=== PATIENT | female | born 1990 | race Caucasian/White ===

== ENCOUNTER 2024-10-31 10:38 | Outpatient (CLI) | payer OTHER | END 2024-10-31 12:19 | disposition home or self-care (01) | LOC: NST 10:38 | PROVIDERS: ATTEND Obstetrics & Gynecology | DX: Z3A.37 37 weeks gestation of pregnancy (principal) ==

== ENCOUNTER 2024-11-06 14:45 | Inpatient (IN) | payer OTHER ==
[~2024-11-06] VITALS: Ht 160 cm; Wt 2.7 kg
[2024-11-16 03:05] VITALS: BP 115/76
[2024-11-16] MEDS ORDERED: RINGERS SOLUTION,LACTATED 1,000 ML IV SCH (04:00)
[2024-11-16] MEDS ORDERED: MORPHINE SULFATE 4 MG/ML CARTRIDGE IV PRN ×2 (04:00→16:00)
[2024-11-16] MEDS ORDERED: PRENATAL TABLE1 EAC4 PO (04:09)
[2024-11-16 05:06] LABS: HEMATOCRIT 31.3 % (36.0-45.00); HEMOGLOBIN 11.2 g/dL (12.0-15.00); INR < 0.93; MEAN CELL VOLUME 88.4 fL (80.00-100.00); MEAN CORPUSCULAR HEMOGLOBIN 31.6 pg (27.00-32.0); MEAN CORPUSCULAR HGB CONC 35.7 g/dl (32.0-36.0); PARTIAL THROMBOPLASTIN TIME 24.7 SECONDS (22.0-34.0); PLATELET COUNT 177 K/uL (150-450); PROTHROMBIN TIME 10.1 SECONDS (9.0-11.5); RED BLOOD COUNT 3.54 M/uL (4.00-6.00)
[2024-11-16 07:32] VITALS: BP 100/66
[2024-11-16 11:11] VITALS: BP 119/77
[2024-11-16] MEDS ORDERED: CEFAZOLIN SODIUM 1,000 MG VIAL IV SCH (13:30)
[2024-11-16] MEDS ORDERED: CITRIC ACID/SODIUM CITRATE 30 ML BLIST.PACK PO SCH (13:30)
[2024-11-16] MEDS ORDERED: OXYTOCIN 1,000 ML IV SCH (16:00)
[2024-11-16] MEDS ORDERED: MORPHINE SULFATE 4 MG/ML VIAL IV ONE ×2 (17:05→17:35)
[2024-11-16] MEDS ORDERED: KETOROLAC TROMETHAMINE 60 MG VIAL IM ONE (19:16)
[2024-11-16 19:50] VITALS: BP 110/75
[2024-11-16] MEDS ORDERED: KETOROLAC TROMETHAMINE 10 MG TABLET PO PRN (20:00)
[2024-11-17] VITALS: BP 135/81
[2024-11-17 08:11] VITALS: BP 107/70
[2024-11-17] MEDS ORDERED: IBUprofen 400 MG TABLET PO SCH ×2 (09:00→17:00)
[2024-11-17 10:23] LABS: HEMATOCRIT 27.9 % (36.0-45.00); HEMOGLOBIN 9.7 g/dL (12.0-15.00); MEAN CELL VOLUME 90.2 fL (80.00-100.00); MEAN CORPUSCULAR HEMOGLOBIN 31.5 pg (27.00-32.0); MEAN CORPUSCULAR HGB CONC 34.9 g/dl (32.0-36.0); PLATELET COUNT 134 K/uL (150-450); RED CELL DISTRIBUTION WIDTH 14.1 % (11.5-14.5)
[2024-11-17 12:30] VITALS: BP 107/73
[2024-11-17 16:33] VITALS: BP 106/71
[2024-11-17] MEDS ORDERED: MINERAL OIL 30 ML BLIST.PACK PO NR (19:30)
[2024-11-17] MEDS ORDERED: BISACODYL 10 MG/SUPP.RECT SUPP.RECT RECTAL NR (19:30)
[2024-11-17] MEDS ORDERED: MAGNESIUM HYDROXIDE 30 ML BLIST.PACK PO NR (19:30)
[2024-11-17] MEDS ORDERED: KETOROLAC TROMETHAMINE 60 MG VIAL IM ONE (23:30)
[2024-11-18] MEDS ORDERED: GABAPENTIN 300 MG CAPSULE PO SCH ×2 (01:00→09:00)
[2024-11-18 01:04] VITALS: BP 96/66
[2024-11-18 05:29] VITALS: BP 105/71
[2024-11-18] MEDS ORDERED: OxyCODONE HCL 5 MG TABLET (ROXICODONE) PO PRN (06:00)
[2024-11-18] MEDS ORDERED: IRON FUM,PS/FOLIC ACID/VITC/B3 1 CAP CAPSULE PO SCH (09:00)
[2024-11-18 09:14] VITALS: BP 110/74
[2024-11-18 16:02] VITALS: BP 117/78
[2024-11-18 19:00] VITALS: BP 104/64
[2024-11-19] VITALS: BP 118/80
[2024-11-19 08:38] VITALS: BP 116/80
== END 2024-11-19 09:30 | disposition home or self-care (01) | DRG 788 ==
LOC: LDR 11-16 03:40 → OB/GYN 11-16 03:40 → LDR 11-16 14:45 → OB/GYN 11-16 15:45
PROVIDERS: Obstetrics & Gynecology; ADMIT Obstetrics & Gynecology; ATTEND Obstetrics & Gynecology
PROC: 4A1HXCZ Monitoring of Products of Conception, Cardiac Rate, External Approach (ICD-10-PCS; 2024-11-16)
PROC: 10D00Z1 Extraction of Products of Conception, Low, Open Approach (ICD-10-PCS; principal; 2024-11-16 15:00)
DX: O82 Encounter for cesarean delivery without indication (principal); O33.8 Maternal care for disproportion of other origin; Z3A.40 40 weeks gestation of pregnancy; Z37.0 Single live birth